=== PATIENT | male | born 1970 | race Caucasian/White ===

== ENCOUNTER 2019-08-31 06:11 | Day surgery (SDC) | payer OTHER | END 2019-08-31 13:25 | disposition home or self-care (01) | LOC: AMB-ENDOS 06:11 | DX: K62.89 Other specified diseases of anus and rectum (principal) ==

== ENCOUNTER 2019-09-21 10:15 | Inpatient (IN) | payer OTHER ==
[~2019-09-21] VITALS: Ht 160 cm; Wt 61.7 kg
[2019-09-21] MEDS ORDERED: PEPCID AC20 MG PO (13:22)
[2019-09-21] MEDS ORDERED: WELLBUTRIN SR150 MG PO (13:22)
[2019-09-21] MEDS ORDERED: [UNRECOGNIZED DRUG - OTHER] (13:23)
[2019-09-24] MEDS ORDERED: FAMOTIDINE40 MG PO (10:23)
[2019-09-24] MEDS ORDERED: TRAZODONE HCL50 MG PO (10:23)
== END 2019-09-26 15:35 | disposition home or self-care (01) | DRG 330 ==
LOC: ADM 10:15 → EDSTATUS 10:15 → SURH 09-24 05:30 → O/R 09-24 05:30 → SURH 09-24 07:00 → ADM 09-28 08:15
PROVIDERS: ADMIT Colon & Rectal Surgery
PROC: 0DJD8ZZ Inspection of Lower Intestinal Tract, Via Natural or Artificial Opening Endoscopic (ICD-10-PCS; 2019-09-24)
PROC: 0DTN4ZZ Resection of Sigmoid Colon, Percutaneous Endoscopic Approach (ICD-10-PCS; principal; 2019-09-24 07:00)
DX: K62.3 Rectal prolapse (principal); K62.6 Ulcer of anus and rectum; K63.89 Other specified diseases of intestine

== ENCOUNTER 2019-09-28 17:33 | Emergency (ER) | payer OTHER ==
[~2019-09-28] VITALS: Ht 160 cm; Wt 61.2 kg
[~2019-09-28 17:33] MED LIST: FAMOTIDINE40 MG PO; PEPCID AC20 MG PO; TRAZODONE HCL50 MG PO; WELLBUTRIN SR150 MG PO; [UNRECOGNIZED DRUG - OTHER]
== END 2019-09-28 22:01 | disposition home or self-care (01) ==
LOC: ER 17:33
DX: T81.89XA Other complications of procedures, not elsewhere classified, initial encounter (principal); R10.33 Periumbilical pain; R50.9 Fever, unspecified; R07.89 Other chest pain

== ENCOUNTER 2023-01-15 07:27 | Day surgery (SDC) | payer OTHER | END 2023-01-15 13:30 | disposition home or self-care (01) | LOC: AMB-ENDOS 07:27 | PROVIDERS: ATTEND Colon & Rectal Surgery | DX: D12.3 Benign neoplasm of transverse colon (principal); D12.4 Benign neoplasm of descending colon; R10.32 Left lower quadrant pain; Z20.822 Contact with and (suspected) exposure to COVID-19 ==